=== PATIENT | female | born 1995 | race Two or more races ===

== ENCOUNTER 2024-01-03 17:04 | Emergency (ER) | payer OTHER ==
[~2024-01-03] VITALS: Ht 167.6 cm; Wt 55.8 kg
[2024-01-03 17:28] VITALS: BP 113/75; TEMP 98.4
[2024-01-03] MEDS ORDERED: dexAMETHasone 1 MG/ML UDC ONE (17:52)
[2024-01-03] MEDS: dexAMETHasone 1 MG/ML UDC PO ONE (17:58)
[2024-01-03 18:37] LABS: APPEARANCE,URINE CLEAR (CLEAR); BILIRUBIN,URINE NEGATIVE (NEGATIVE); BLOOD, URINE NEGATIVE Ery/uL (NEGATIVE); COLOR,URINE YELLOW (YELLOW); KETONES,URINE NEGATIVE (NEGATIVE); LEUKOCYTE ESTERASE ,URINE TRACE (NEGATIVE); NITRITE, URINE NEGATIVE (NEGATIVE); PH,URINE 6.5 (5.0-8.0); PROTEIN,URINE NEGATIVE (NEGATIVE); UGLUCOSE NEGATIVE (NEGATIVE); UROBILINOGEN,URINE 0.2 EU/dL (0.2)
[2024-01-03 19:03] LABS: ADD URINE CULTURE YES; BACTERIA,URINE 2+ /HPF (None Seen); RBC,URINE NONE SEEN /HPF (0-2)
[2024-01-03 19:10] VITALS: O2SAT 99
== END 2024-01-03 19:11 | disposition home or self-care (01) ==
LOC: ER 17:24
DX: J06.9 Acute upper respiratory infection, unspecified (principal); E28.2 Polycystic ovarian syndrome; Z20.822 Contact with and (suspected) exposure to COVID-19
CPT/HCPCS: 99283; 87426; 87086; 81001; J8540